=== PATIENT | male | born 1990 | race Caucasian/White ===

== ENCOUNTER 2021-12-24 18:02 | Emergency (ER) | payer SELFPAY ==
[~2021-12-24] VITALS: Ht 170.2 cm; Wt 70.0 kg
[2021-12-24] MEDS ORDERED: ACETAMINOPHEN 325MG TABLET PO STA (18:58)
[2021-12-24] MEDS ORDERED: TETANUS, DIPHTHERIA, PERTUSSIS VAC/PF 0.5ML (>10YR OLD) IM ONE (19:00)
[2021-12-24 19:34] LABS: BASOPHILS % 1.9 % (0.0-2.0); EOSINOPHILS % 0.5 % (0.0-5.0); HEMATOCRIT. 40.8 % (42.0-52.0); HEMOGLOBIN. 13.4 g/dL (14.0-18.0); LYMPHOCYTES % 33.3 % (20.0-50.0); MEAN CORPUSCULAR HEMOGLOBIN 27.1 pg (28.0-32.0); MEAN CORPUSCULAR VOLUME 82.5 fL (80.0-94.0); MEAN PLATELET VOLUME 7.6 fl (7.4-10.4); MONOCYTES % 6.4 % (2.0-8.0); NEUTROPHILS % 57.9 % (40.0-76.0); PLATELET 224 x1000/uL (130-400); RED BLOOD CELL COUNT 4.94 mill/uL (4.7-6.1)
[2021-12-24 19:35] LABS: CHLORIDE 100 mEq/L (98-107)
[2021-12-24 19:40] LABS: INR 1.1
[2021-12-24 19:53] LABS: ETHANOL BLOOD 452 mg/dL
[2021-12-25 00:32] VITALS: BP 122/64
== END 2021-12-25 00:33 | disposition home or self-care (01) ==
LOC: ER 18:02
DX: F10.129 Alcohol abuse with intoxication, unspecified (principal); S00.81XA Abrasion of other part of head, initial encounter; Y90.8 Blood alcohol level of 240 mg/100 ml or more; I10 Essential (primary) hypertension; W01.198A Fall on same level from slipping, tripping and stumbling with subsequent striking against other object, initial encounter; Y93.89 Activity, other specified; Y92.89 Other specified places as the place of occurrence of the external cause
CPT/HCPCS: 36415; 80053; 80320; 85025; 86850; 86900; 99284; G0480